=== PATIENT | female | born 1965 | race Caucasian/White ===

== ENCOUNTER 2016-07-21 14:10 | Emergency (ER) | payer OTHER ==
[2016-07-21 14:38] VITALS: BP 151/96
[2016-07-21] MEDS ORDERED: ONDANSETRON HCL/PF 2 MG/ML VIAL IM ONE (15:42)
[2016-07-21] MEDS ORDERED: KETOROLAC TROMETHAMINE 60 MG/2 ML VIAL IM ONE ×2 (15:42→15:50)
[2016-07-21] MEDS ORDERED: ACETAMINOPHEN PO PRN ×2 (15:43)
[2016-07-21] MEDS ORDERED: OXYCODONE PO PRN (15:43)
[2016-07-21] MEDS ORDERED: HYDROCODONE PO PRN (15:43)
--- NOTE | 2016-07-21 15:44 | ERNOTE ---
Back Pain ER HPI Date of Service: 07/21/16 Presenting Symptoms: hx chronic back pain Time Seen by Provider: 07/21/16 15:39 Immunizations: IMMUNIZATION HX Immunizations Up to Date Yes History of Influenza Vaccine No Hx Pneumococcal Vaccination No Allergies/Adverse Reactions: Allergies sumatriptan [From Imitrex] Adverse Reaction (Mild, Verified 07/21/16 14:38) "made me feel high" sumatriptan succinate [From Imitrex] Adverse Reaction (Mild, Verified 07/21/16 14:38) "made me feel high" Home Medications: HOME MEDICATIONS Amlodipine Besylate 10 mg PO DAILY 09/01/13 [Last Taken Unknown] Levothyroxine Sodium [Synthroid] 200 mcg PO DAILY 09/01/13 [Last Taken Unknown] ALPRAZolam [Xanax] 2 mg PO QID 11/08/13 [Last Taken 07/05/14] Aripiprazole [Abilify] 30 mg PO DAILY 11/08/13 [Last Taken 07/05/14] Escitalopram Oxalate [Lexapro] 15 mg PO DAILY 06/14/14 [Last Taken Unknown] Zolpidem Tartrate 10 mg PO HS 06/14/14 [Last Taken Unknown] Levofloxacin [Levaquin] 750 mg PO DAILY #10 tab 10/12/14 [Last Taken Unknown] Amox Tr/Potassium Clavulanate [Augmentin 875-125 Tablet] 875 mg PO Q12H #20 tab 04/03/16 [Last Taken Unknown] Hydrocodone/Acetaminophen [Dixon 7.5-325 Tablet] 1 each PO QID PRN #12 tablet [Last Taken Unknown] Ibuprofen [Motrin] 800 mg PO TID #30 tablet 04/03/16 [Last Taken Unknown] Lisinopril [Zestril] 04/04/16 [Last Taken Unknown] Mupirocin [Bactroban] 1 appl TP BID #22 gm 05/19/16 [Last Taken Unknown] oxyCODONE HCL/ACETAMINOPHEN [Percocet 5 MG/325 MG] 1 tab PO Q4H PRN #20 tab [Last Taken Unknown] Sulfamethoxazole/Trimethoprim [Bactrim Ds] 1 tab PO BID #20 tab 07/21/16 [Last Taken Unknown] Narrative: Here for chronic back pain. Also complains of right sided occipital headaches, which have been there for three days. Also pt has a small area of redness under her right breast.She states she has had MRSA before. - Patient's Past Medical History Patient History - Medical: Anxiety, Bipolar, Chronic Pain, Diabetes Type 2, Depression, Migraines Patient History - Cardiac/Respiratory: Hypertension, Hyperlipidemia Patient History - Cancer: No Hx of Cancer, Thyroid Patient History - Surgical Procedures: Appendectomy, Back Surgery, Hysterectomy , Tubal Ligation, T & A, Other Patient History - Other: None - Social History Living Situations: home Abuse History: No History of abuse Psych History: No pertinent hx Does anyone smoke in the home?: Yes Alcohol Use: occasionally Drug Use: none - Immunizations Immunizations Up to Date: Yes Hx Pneumococcal Vaccination: No History of Influenza Vaccine: No ED Progress - Vital Signs Vital Signs: Vital Signs 07/21/16 14:29 Temperature 36.2 C L Pulse Rate 84 Respiratory 12 Rate Blood Pressure 151/96 O2 Sat by Pulse 96 Oximetry - Progress/Reassessment Chief Complaint: Back Pain Departure Clinical Impression: Cellulitis of breast Chronic pain Qualifiers: Chronic pain type: other chronic pain Qualified Code(s): G89.29 - Other chronic pain - Departure Disposition: Home self-care Condition: Good Instructions: Cellulitis, Adult, [id number], Chronic Back Pain Referrals: Herlinda Walden MD [Primary Care Provider] - Prescriptions: Sulfamethoxazole/Trimethoprim [Bactrim Ds] 1 tab PO BID #20 tab
[2016-07-21] MEDS ORDERED: POTASSIUM CLAVULANATE PO SCH (15:45)
[2016-07-21] MEDS ORDERED: [UNRECOGNIZED DRUG - OTHER] PO SCH (15:45)
[2016-07-21] MEDS ORDERED: AMOX TR PO SCH (15:45)
[2016-07-21] MEDS ORDERED: diphenhydrAMINE HCL 25 MG CAPSULE PO ONE (15:47)
[2016-07-21] MEDS ORDERED: diphenhydrAMINE HCL 25 MG CAPSULE ONE (15:50)
[2016-07-21] MEDS ORDERED: ONDANSETRON HCL/PF 2 MG/ML VIAL ONE (15:50)
[2016-07-21] MEDS ORDERED: ALPRAZOLAM 2 MG PO SCH (17:00)
[2016-07-21] MEDS ORDERED: IBUPROFEN 800 MG PO SCH (17:00)
[2016-07-21] MEDS ORDERED: ZOLPIDEM TARTRATE 10 MG PO SCH (21:00)
[2016-07-21] MEDS ORDERED: MUPIROCIN TP SCH (21:00)
[2016-07-22] MEDS ORDERED: LEVOFLOXACIN 750 MG PO SCH (09:00)
[2016-07-22] MEDS ORDERED: ESCITALOPRAM OXALATE 15 MG PO SCH (09:00)
[2016-07-22] MEDS ORDERED: AMLODIPINE BESYLATE 10 MG PO SCH (09:00)
[2016-07-22] MEDS ORDERED: LEVOTHYROXINE SODIUM 200 MCG PO SCH (09:00)
[2016-07-22] MEDS ORDERED: ARIPIPRAZOLE 30 MG PO SCH (09:00)
== END 2016-07-21 16:02 | disposition home or self-care (01) ==
LOC: ER 14:10
DX: G89.29 Other chronic pain (principal); N61.0 Mastitis without abscess

== ENCOUNTER 2016-11-16 05:28 | Emergency (ER) | payer OTHER ==
--- NOTE | 2016-11-16 06:12 | ERNOTE ---
Trauma/Assault HPI - General Stated Complaint: FALL Time Seen by Provider: 11/16/16 05:55 Source: patient Exam Limitations: no limitations - Immun/Allergies/Home Medications Immunizations: IMMUNIZATION HX Immunizations Up to Date Yes History of Influenza Vaccine No Hx Pneumococcal Vaccination No Allergies/Adverse Reactions: Allergies sumatriptan [From Imitrex] Adverse Reaction (Mild, Verified 11/16/16 11:08) "made me feel high" sumatriptan succinate [From Imitrex] Adverse Reaction (Mild, Verified 11/16/16 11:08) "made me feel high" Home Medications: HOME MEDICATIONS Amlodipine Besylate 10 mg PO BID 09/01/13 [Last Taken Unknown] Levothyroxine Sodium [Synthroid] 300 mcg PO DAILY 09/01/13 [Last Taken Unknown] ALPRAZolam [Xanax] 2 mg PO QID 11/08/13 [Last Taken 07/05/14] Aripiprazole [Abilify] 30 mg PO DAILY 11/08/13 [Last Taken 07/05/14] Escitalopram Oxalate [Lexapro] 30 mg PO DAILY 06/14/14 [Last Taken Unknown] Lisinopril [Zestril] 10 mg PO BID 04/04/16 [Last Taken Unknown] QUEtiapine FUMARATE [Seroquel] 50 mg PO HS 11/16/16 [Last Taken Unknown] - History of Present Illness Narrative: Pt got up to go to the bathroom and tripped over the cat bowl. She struck her head on the oven door and scraped her left knee. this caused her to have a migraine Location Occurred: Reports: home Pain Location: Reports: head, lower extremity - left knee Method of Injury: Reports: fall Severity: moderate Modifying Factors - (Worsens): Reports: movement Loss of Consciousness: Reports: brief (seconds) - unsure, remembers the event, remembers coming to hospital Associated Symptoms - Trauma: Reports: headache. Denies: confusion Review of Systems - Review of Systems Constitutional: Present: no symptoms reported EYE: Present: no symptoms reported ENT: Present: no symptoms reported - Patient's Past Medical History Patient History - Medical: Anxiety, Bipolar, Chronic Pain, Diabetes Type 2, Depression, Migraines Patient History - Cardiac/Respiratory: Hypertension, Hyperlipidemia Patient History - Cancer: Thyroid Patient History - Surgical Procedures: Appendectomy, Back Surgery, Hysterectomy , Tubal Ligation, T & A, Other Patient History - Other: None - Social History Living Situations: home Abuse History: No History of abuse Psych History: Hx of Anxiety, Hx of Depression, Hx of Bipolar Disorder, Current tx/ever been on anti-depressants or anti-anxiety meds Does anyone smoke in the home?: Yes Smoking Status: Current every day smoker Alcohol Use: occasionally Drug Use: none - Immunizations Immunizations Up to Date: Yes Hx Pneumococcal Vaccination: No History of Influenza Vaccine: No Physical Exam - Physical Exam General Appearance: Present: wd/wn, alert, mild distress Eye Exam: Normal inspection: bilateral, PERRL: bilateral, EOMI: bilateral Neck: Present: normal inspection, nontender, supple, full range of motion Respiratory: Present: no respiratory distress, no accessory muscle use Back Exam: Present: normal inspection, normal range of motion Extremity Exam: Present: normal range of motion, no edema Neurological Exam: Present: alert, oriented, normal mood/affect, courtroom deputy II-XII nml as tested Skin Exam: Present: other - abrasion on top of head, 3 cm in diameter minimal raised bruise present ED Progress - Vital Signs Vital Signs: Vital Signs 11/16/16 05:31 Temperature 36.4 C L Pulse Rate 96 Respiratory 18 Rate Blood Pressure 160/114 O2 Sat by Pulse 95 Oximetry - Progress/Reassessment Chief Complaint: Fall Progress Note-Subjective: 11/16/16 07:12 Pt comes out of her room asking if her tests are done. I checked the CT scan and no results are available. Labs are returned and are WNL. Pt back in her room and nurse went in to explain the delay to her. Pt yelling at the nurse that she has waited too long. Nurse explaining that we had 2 people brought in by ambulance and others come in as well that required our attention while awaiting her results. 11/16/16 07:20 CT results returned. Pt talking about leaving AMA. I followed the patient back into her room and explained that I needed to wait for the results for her safety. She stated that "I am not on warfarin, what did you think, that I had a bleed in my brain?" I explained that many people have bleeds in their brain that are not on blood thinners and that her safety had to come first. pt did calm down when I explained that I have ordered medications. Ketorolac and phenergan given IM. Departure Clinical Impression: Headache Qualifiers: Headache type: unspecified Headache chronicity pattern: acute headache Intractability: not intractable Qualified Code(s): R51 - Headache Contusion Qualifiers: Encounter type: initial encounter Contusion area: head Contusion of head detail : scalp Qualified Code(s): S00.03XA - Contusion of scalp, initial encounter - Departure Disposition: Home Follow Up Needed Condition: Good Instructions: General Headache Without Cause Additional Instructions: See your regular doctor if not improving. Return to ER if worsening Referrals: Hrelinda Walden MD [Primary Care Provider] -
--- OUTSIDE RECORDS SUMMARY | 2016-11-16 06:12 | XMS REPORT | Continuity of Care Document ---
:1965 Author Organization [email or web address] [place] [address] Care Team Providers Name Role Phone Unavailable Primary Care Provider Unavailable Source Comments This disclosure is being made pursuant to the [employer] program and maynot contain all information available regarding this patient.[email or web address] Active Allergies and Adverse Reactions Not on File Current Medications Be aware that medications may not be up to date as of this document. Alwaysverify current medications with the patient. Not on file Active Problems Not on file Social History Tobacco Use Types Packs/Day Years Used Date Never Assessed Plan of Care Health Maintenance Due Date Last Done Comments Retired-Pertussis Vaccine Adult 1985 Retired-Tetanus Vaccine Adult 1985 Pap Smear 1987 Mammogram 2006 Retired-INFLUENZA VACCINE 02/18/2015 Results from Last 3 Months Not on file
--- OUTSIDE RECORDS SUMMARY | 2016-11-16 06:12 | XMS REPORT | Continuity of Care Document ---
:1965 Author Organization [facility] ([facility]) [place] [address] Phone [phone] Care Team Providers Name Role Phone Arnie Joshi Primary Care Provider [phone] Source Comments This disclosure is being made pursuant to the Care Everywhere program, applicable federal and state laws, and may not contain all informaitonavailable regarding this patient.[facility] ([facility]) Active Allergies and Adverse Reactions No Active Allergies Current Medications Not on file Active Problems Problem Noted Date Viral hepatitis B without mention of hepatic coma, acute or unspecified, 07/06 without mention of hepatitis delta Chronic hepatitis C without mention of hepatic coma 07/06/2006 Social History Tobacco Use Types Packs/Day Years Used Date Never Assessed Last Filed Vital Signs Vital Sign Reading Time Taken Blood Pressure 141/80 08/16/2006 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 Pulse 79 08/16/2006 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 Temperature 36.9 C (98.42 F) 08/16/2006 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 Respiratory Rate - - Height 1.7 m (5' 6.92") 08/16/2006 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 Weight 103.896 kg (229 lb 0.8 oz) 08/16/2006 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 Body Mass Index 35.95 08/16/2006 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 Oxygen Saturation - - Plan of Care Health Maintenance Due Date Last Done Comments Tdap Vaccine 1977 Lipid Disorder Screening 1984 MMR Vaccine 1984 Td Vaccine 1984 Pneumococcal Vaccine (1 of 1 1985 - PPSV23) Cervical Cancer Screening 1996 Mammogram 2006 Hepatitis B Vaccine (3 of 3 01/13/2007 08/16/2006, Additional history exists - Twinrix Series) 08/16/2006, 07/06/2006 Influenza Vaccine: Seasonal 01/19/2016 (#1) Results from Last 3 Months Not on file
[2016-11-16 06:25] LABS: Hematocrit 40.6 % (37.0-47.0); Hemoglobin 13.8 gm/dL (12.5-16.0); Mean Cell Volume 93.1 fl (78-100); Mean Corpuscular Hemoglobin 31.7 pg (27-31); Mean Platelet Volume 9.3 fl (6.0-9.5); Neutrophil # 2.8 K/mm3 (1.3-6.0); Neutrophil % 51.5 % (42-75.0); Platelet Count 186 K/mm3 (150-450); Red Blood Count 4.36 M/mm3 (4.2-5.4); Red Cell Distribution Width 12.9 % (11.5-14.0); White Blood Count 5.4 K/mm3 (4.0-10.5)
[2016-11-16 06:32] LABS: Anion Gap 12.2 mmol/L (6.8-13.8); BUN/Creatinine Ratio 12.8 (9.0-21.6); Calcium * 8.3 mg/dL (7.9-10.9); Carbon Dioxide 25.3 mmol/L (24-32.6); Estimated Creat Clear 69.6; Potassium 3.5 mmol/L (3.4-4.6)
[2016-11-16 07:12] VITALS: BP 122/54
[2016-11-16] MEDS ORDERED: KETOROLAC TROMETHAMINE 60 MG/2 ML VIAL IM ONE ×2 (07:17→07:22)
[2016-11-16] MEDS ORDERED: PROMETHAZINE HCL 25 MG/ML AMPUL IM ONE (07:18)
[2016-11-16] MEDS ORDERED: PROMETHAZINE HCL 25 MG/ML AMPUL ONE (07:22)
== END 2016-11-16 07:37 | disposition home or self-care (01) ==
LOC: ER 05:28
DX: R51 Headache (principal); S00.03XA Contusion of scalp, initial encounter; W01.198A Fall on same level from slipping, tripping and stumbling with subsequent striking against other object, initial encounter; Y93.9 Activity, unspecified; Y92.000 Kitchen of unspecified non-institutional (private) residence as the place of occurrence of the external cause; Z72.0 Tobacco use; Z85.850 Personal history of malignant neoplasm of thyroid; F31.70 Bipolar disorder, currently in remission, most recent episode unspecified; F41.8 Other specified anxiety disorders; I10 Essential (primary) hypertension

== ENCOUNTER 2016-11-16 11:01 | Emergency (ER) | payer OTHER ==
[2016-11-16 11:08] VITALS: BP 167/93
--- OUTSIDE RECORDS SUMMARY | 2016-11-16 11:45 | XMS REPORT | Continuity of Care Document ---
:1965 Author Organization [facility] [place] [address] Care Team Providers Name Role Phone Unavailable Primary Care Provider Unavailable Source Comments This disclosure is being made pursuant to the [employer] program and maynot contain all information available regarding this patient.[employer] Active Allergies and Adverse Reactions Not on [...]
--- OUTSIDE RECORDS SUMMARY | 2016-11-16 11:46 | XMS REPORT | Continuity of Care Document ---
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
[2016-11-16] MEDS ORDERED: METOCLOPRAMIDE HCL 5 MG/ML VIAL IM ONE (11:50)
[2016-11-16] MEDS ORDERED: diphenhydrAMINE HCL 50 MG/ML VIAL IM ONE (11:50)
[2016-11-16] MEDS ORDERED: METOCLOPRAMIDE HCL 5 MG/ML VIAL ONE (12:04)
[2016-11-16] MEDS ORDERED: diphenhydrAMINE HCL 50 MG/ML VIAL ONE (12:04)
--- NOTE | 2016-11-16 12:06 | ERNOTE ---
Headache ER HPI - Narrative Date of Service: 11/16/16 - General Presenting Symptoms: headache Time Seen by Provider: 11/16/16 11:33 Source: patient, RN notes reviewed, old records - Immun/Allergies/Home Medications Immunizations: IMMUNIZATION HX Immunizations Up to Date Yes History of Influenza Vaccine No Hx Pneumococcal Vaccination No Allergies/Adverse Reactions: Allergies sumatriptan [From Imitrex] Adverse Reaction (Mild, Verified 11/16/16 11:08) "made me feel high" sumatriptan succinate [From Imitrex] Adverse Reaction (Mild, Verified 11/16/16 11:08) "made me feel high" Home Medications: HOME MEDICATIONS Amlodipine Besylate 10 mg PO BID 09/01/13 [Last Taken Unknown] Levothyroxine Sodium [Synthroid] 300 mcg PO DAILY 09/01/13 [Last Taken Unknown] ALPRAZolam [Xanax] 2 mg PO QID 11/08/13 [Last Taken 07/05/14] Aripiprazole [Abilify] 30 mg PO DAILY 11/08/13 [Last Taken 07/05/14] Escitalopram Oxalate [Lexapro] 30 mg PO DAILY 06/14/14 [Last Taken Unknown] Lisinopril [Zestril] 10 mg PO BID 04/04/16 [Last Taken Unknown] QUEtiapine FUMARATE [Seroquel] 50 mg PO HS 11/16/16 [Last Taken Unknown] - Pain Pain Score: 9 - History of Present Illness Narrative: 51 y/o female returns ambulatory to the ED for a headache due to a fall at home that she was evaluated here 4 hours ago for. She had a normal head CT and unremarkable lab work. She was given Toradol and Phenergan IM, but reports her headache is now worse. She contacted her PCP and was directed to come back here. She is upset that her pain was not treated adequately at her first visit today, and reports feeling that she was not thoroughly evaluated, despite complaining earlier this morning about having a CT and labs done. She took Excedrin Migraine at home. This did not help her pain either. Date (Duration): 11/16/16 Time (Timing): 05:00 Timing of Headache: abrupt Context Headache: Present: new onset Associated Symptoms: Denies: nausea, vomiting, vision changes, confusion, loss of consciousness, neck pain/stiffness Prior Treament: Reports: recently seen, treated by physician Review of Systems - Review of Systems Constitutional: Present: no symptoms reported EYE: Present: see HPI ENT: Present: no symptoms reported Respiratory: Present: no symptoms reported Cardiology: Present: no symptoms reported Gastrointestinal/Abdominal: Present: See HPI Genitourinary: Present: no symptoms reported Musculoskeletal: Present: joint pain, joint swelling. Absent: neck pain Skin: Present: lumps. Absent: lesions Neurological: Present: See HPI Endocrine: Present: no symptoms reported Hematologic/Lymphatic: Present: no symptoms reported Psych: Present: emotional problems - Patient's Past Medical History Patient History - Medical: Anxiety, Bipolar, Chronic Pain, Diabetes Type 2, Depression, Migraines Patient History - Cardiac/Respiratory: Hypertension, Hyperlipidemia Patient History - Cancer: Thyroid Patient History - Surgical Procedures: Appendectomy, Back Surgery, Hysterectomy , Tubal Ligation, T & A, Other Patient History - Other: None LMP (females 10-50): Menopausal - Social History Living Situations: home Abuse History: No History of abuse Psych History: Hx of Anxiety, Hx of Depression, Hx of Bipolar Disorder, Current tx/ever been on anti-depressants or anti-anxiety meds Does anyone smoke in the home?: Yes Smoking Status: Current every day smoker Alcohol Use: occasionally Drug Use: none - Immunizations Immunizations Up to Date: Yes Hx Pneumococcal Vaccination: No History of Influenza Vaccine: No Physical Exam - Physical Exam General Appearance: Present: wd/wn, alert, no apparent distress, other - Disheveled appearance, angry/argumentative Respiratory: Present: no respiratory distress, normal breath sounds, no accessory muscle use, lungs clear Cardiovascular/Chest: Present: regular rate, rhythm, no murmur, normal peripheral pulses Extremity Exam: Present: normal range of motion, no edema, other - mild contusion and tenderness to left anterior knee, no deformity or effusion present. Absent: joint swelling, extremity edema Neurological Exam: Present: alert, oriented, no motor/sensory deficits, other - dysporic. Absent: normal mood/affect Skin Exam: Present: normal color, warm/dry ED Progress - Vital Signs Patient's Vital Signs:: I have reviewed the patient's vital signs. Vital Signs: Vital Signs 11/16/16 11/16/16 11/16/16 05:31 07:09 11:04 Temperature 36.4 C L 36.4 C L Pulse Rate 95 Respiratory 16 Rate Blood Pressure 122/54 167/93 O2 Sat by Pulse 97 Oximetry - Progress/Reassessment Chief Complaint: Headache Progress:: Unchanged Plan - Plan Plan: Patient is angry and verbally abusive with nursing staff, argumentative with me about pain medications, repeatedly told that I will not give her narcotics as this is not appropriate in light of her hitting her head, her frequent falls and her current medications. Offered Reglan and Benadryl as it is not time for her to have another dose of Toradol - finally agrees to taking this after arguing for some time. Departure Clinical Impression: Headache Qualifiers: Headache type: unspecified Headache chronicity pattern: acute headache Intractability: not intractable Qualified Code(s): R51 - Headache Fall Qualifiers: Encounter type: subsequent encounter Qualified Code(s): W19.XXXD - Unspecified fall, subsequent encounter Contusion of knee, left Qualifiers: Encounter type: subsequent encounter Qualified Code(s): S80.02XD - Contusion of left knee, subsequent encounter - Departure Disposition: Home Follow Up Needed Condition: Stable Additional Instructions: Continue your routine medications Apply ice to sore areas Referrals: Herlinda Walden MD [Staff Physician] -
== END 2016-11-16 12:18 | disposition home or self-care (01) ==
LOC: ER 11:01
DX: R51 Headache (principal); W19.XXXD Unspecified fall, subsequent encounter; S80.02XD Contusion of left knee, subsequent encounter; Z85.850 Personal history of malignant neoplasm of thyroid; Z72.0 Tobacco use; F31.70 Bipolar disorder, currently in remission, most recent episode unspecified; I10 Essential (primary) hypertension; F41.8 Other specified anxiety disorders

== ENCOUNTER 2017-03-17 14:16 | Emergency (ER) | payer OTHER ==
[2017-03-17 14:29] VITALS: BP 126/95
[2017-03-17] MEDS ORDERED: KETOROLAC TROMETHAMINE 60 MG/2 ML VIAL IM ONE ×2 (14:32→14:34)
[2017-03-17] MEDS ORDERED: CLINDAMYCIN PHOSPHATE 150 MG/ML VIAL IM ONE (14:32)
[2017-03-17] MEDS ORDERED: ORPHENADRINE CITRATE 30 MG/ML VIAL IM ONE (14:32)
[2017-03-17] MEDS ORDERED: ORPHENADRINE CITRATE 30 MG/ML VIAL ONE (14:34)
--- NOTE | 2017-03-17 14:38 | ERNOTE ---
Back Pain ER HPI Date of Service: 03/17/17 Presenting Symptoms: hx chronic back pain, other - R axillary boils Time Seen by Provider: 03/17/17 14:18 Source: patient Exam Limitations: no limitations Immunizations: IMMUNIZATION HX Immunizations Up to Date Yes History of Influenza Vaccine No Hx Pneumococcal Vaccination No Allergies/Adverse Reactions: Allergies sumatriptan [From Imitrex] Adverse Reaction (Mild, Verified 03/17/17 14:26) "made me feel high" sumatriptan succinate [From Imitrex] Adverse Reaction (Mild, Verified 03/17/17 14:26) "made me feel high" Home Medications: HOME MEDICATIONS Amlodipine Besylate 10 mg PO BID 09/01/13 [Last Taken Unknown] Levothyroxine Sodium [Synthroid] 300 mcg PO DAILY 09/01/13 [Last Taken Unknown] ALPRAZolam [Xanax] 2 mg PO QID 11/08/13 [Last Taken 07/05/14] Aripiprazole [Abilify] 30 mg PO DAILY 11/08/13 [Last Taken 07/05/14] Escitalopram Oxalate [Lexapro] 30 mg PO DAILY 06/14/14 [Last Taken Unknown] Lisinopril [Zestril] 10 mg PO BID 04/04/16 [Last Taken Unknown] QUEtiapine FUMARATE [Seroquel] 300 mg PO HS 11/16/16 [Last Taken Unknown] Baclofen 20 mg PO BID #60 tablet 03/17/17 [Last Taken Unknown] Orphenadrine Citrate [Norflex] 100 mg PO Q12H #20 tablet.sa 03/17/17 [Last Taken Unknown] Sulfamethoxazole/Trimethoprim [Bactrim Ds] 1 tab PO BID #28 tab 03/17/17 [Last Taken Unknown] Narrative: Pt. comes in with c/o low back pain for 12 hours and abscesses in her R axilla for three days. Pt. 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 Pt. denies any fever, SOB, CP, NVD, fever, but states that she slept in a bad position last night that made her chronic low back pain flair. Pt. states that she usually takes oxycodone for her back pain but has not had a flare in a long time and does not have any percocet at home at this time. Pt. states that her back pain is radiating down her R leg and into her R buttock. Pt. denies that this is a change for her. Review of Systems - Review of Systems Constitutional: Present: no symptoms reported. Absent: recent illness, fever, chills, weakness, fatigue, malaise EYE: Present: no symptoms reported ENT: Present: no symptoms reported Respiratory: Present: no symptoms reported. Absent: shortness of breath, cough , wheezing Cardiology: Present: no symptoms reported. Absent: chest pain, palpitations, edema Gastrointestinal/Abdominal: Present: no symptoms reported. Absent: nausea, vomiting, diarrhea Genitourinary: Present: no symptoms reported. Absent: frequency, pain, dysuria , decreased urinary output Musculoskeletal: Present: back pain - lumbarsacral. Absent: muscle pain, muscle stiffness, joint pain Skin: Present: lesions - R axillary abscesses. Absent: rash, change in hair/ nails Neurological: Present: no symptoms reported. Absent: headache, dizziness/light- headedness, numbness, tingling All Other Systems: All systems neg except as marked - Patient's Past Medical History Patient History - Medical: Anxiety, Bipolar, Chronic Pain, Diabetes Type 2, Depression, Migraines Patient History - Cardiac/Respiratory: Hypertension, Hyperlipidemia Patient History - Cancer: Thyroid Patient History - Surgical Procedures: Appendectomy, Back Surgery, Cancer Surgery, Hysterectomy, Tubal Ligation, T & A, Other Patient History - Other: None LMP (females 10-50): other - Social History Living Situations: home Abuse History: No History of abuse Psych History: Hx of Anxiety, Hx of Depression, Hx of Bipolar Disorder, Current tx/ever been on anti-depressants or anti-anxiety meds Does anyone smoke in the home?: Yes Smoking Status: Current every day smoker Alcohol Use: occasionally Drug Use: none - Immunizations Immunizations Up to Date: Yes Hx Pneumococcal Vaccination: No History of Influenza Vaccine: No Physical Exam - Physical Exam General Appearance: Present: wd/wn, alert, no apparent distress Head Exam: Present: normal inspection, no evidence of injury Eye Exam: Normal inspection: bilateral, PERRL: bilateral, EOMI: bilateral Ears, Nose, Throat: Present: normal ENT inspection, normal pharynx Neck: Present: normal inspection, nontender. Absent: lymphadenopathy (R), lymphadenopathy (L) Respiratory: Present: no respiratory distress, normal breath sounds, no accessory muscle use, chest nontender, lungs clear Cardiovascular/Chest: Present: regular rate, rhythm, no murmur, normal peripheral pulses Gastrointestinal/Abdominal: Present: normal bowel sounds, nontender, nondistended, soft, no organomegaly Back Exam: Present: normal range of motion, no CVA tenderness, vertebral tenderness - L5/ S1, muscle spasm - R paraspinous Extremity Exam: Present: normal inspection, non-tender, normal range of motion, no edema Neurological Exam: Present: alert, oriented, normal mood/affect, no motor/ sensory deficits Skin Exam: Present: normal color, warm/dry, other - two abscesses firm 1cm R axilla one partially open clear fluid drainage scant. Pt. has been squeezing. ED Progress - Vital Signs Patient's Vital Signs:: I have reviewed the patient's vital signs. Vital Signs: Vital Signs 03/17/17 03/17/17 14:21 14:29 Temperature 36.6 C Pulse Rate 81 Respiratory 16 Rate Blood Pressure 126/95 O2 Sat by Pulse 99 Oximetry - Progress/Reassessment Chief Complaint: Back Pain Progress:: Improved Departure Clinical Impression: DJD (degenerative joint disease) of lumbar spine, Abscess - Departure Disposition: Home self-care Condition: Good Instructions: Abscess, [id number], Chronic Back Pain Additional Instructions: Please follow up with primary provider in 2-3 days. Referrals: Herlinda Walden MD [Primary Care Provider] - Prescriptions: Baclofen 20 mg PO BID #60 tablet Orphenadrine Citrate [Norflex] 100 mg PO Q12H #20 tablet.sa Sulfamethoxazole/Trimethoprim [Bactrim Ds] 1 tab PO BID #28 tab
[2017-03-17] MEDS ORDERED: diphenhydrAMINE HCL 50 MG/ML VIAL IM ONE (15:00)
[2017-03-17] MEDS ORDERED: METOCLOPRAMIDE HCL 5 MG/ML VIAL IM ONE (15:01)
[2017-03-17] MEDS ORDERED: METOCLOPRAMIDE HCL 5 MG/ML VIAL ONE (15:14)
[2017-03-17] MEDS ORDERED: diphenhydrAMINE HCL 50 MG/ML VIAL ONE (15:14)
== END 2017-03-17 15:22 | disposition home or self-care (01) ==
LOC: ER 14:16
DX: M47.9 Spondylosis, unspecified (principal); L02.411 Cutaneous abscess of right axilla

== ENCOUNTER 2017-04-06 06:43 | Emergency (ER) | payer OTHER ==
[2017-04-06 06:49] VITALS: BP 174/111
[2017-04-06] MEDS ORDERED: ORPHENADRINE CITRATE 30 MG/ML VIAL IV ONE (07:17)
[2017-04-06] MEDS ORDERED: NORMAL SALINE 1,000 ML IV ONE (07:17)
[2017-04-06] MEDS ORDERED: diphenhydrAMINE HCL 50 MG/ML VIAL IV ONE (07:17)
[2017-04-06] MEDS ORDERED: KETOROLAC TROMETHAMINE 30 MG/ML VIAL IV ONE (07:17)
[2017-04-06] MEDS ORDERED: ONDANSETRON HCL/PF 2 MG/ML VIAL IV ONE (07:17)
--- NOTE | 2017-04-06 07:20 | ERNOTE ---
Headache ER HPI - General Presenting Symptoms: headache Time Seen by Provider: 04/06/17 07:05 Source: patient Exam Limitations: clinical condition - Immun/Allergies/Home Medications Immunizations: IMMUNIZATION HX Immunizations Up to Date Yes History of Influenza Vaccine No Hx Pneumococcal Vaccination No Allergies/Adverse Reactions: Allergies sumatriptan [From Imitrex] Adverse Reaction (Mild, Verified 04/06/17 06:49) "made me feel high" sumatriptan succinate [From Imitrex] Adverse Reaction (Mild, Verified 04/06/17 06:49) "made me feel high" Home Medications: HOME MEDICATIONS Amlodipine Besylate 10 mg PO BID 09/01/13 [Last Taken Unknown] Levothyroxine Sodium [Synthroid] 300 mcg PO DAILY 09/01/13 [Last Taken Unknown] ALPRAZolam [Xanax] 2 mg PO QID 11/08/13 [Last Taken 07/05/14] Aripiprazole [Abilify] 30 mg PO DAILY 11/08/13 [Last Taken 07/05/14] Escitalopram Oxalate [Lexapro] 30 mg PO DAILY 06/14/14 [Last Taken Unknown] Lisinopril [Zestril] 10 mg PO BID 04/04/16 [Last Taken Unknown] QUEtiapine FUMARATE [Seroquel] 300 mg PO HS 11/16/16 [Last Taken Unknown] Baclofen 20 mg PO BID #60 tablet 03/17/17 [Last Taken Unknown] Orphenadrine Citrate [Norflex] 100 mg PO Q12H #20 tablet.sa 03/17/17 [Last Taken Unknown] Sulfamethoxazole/Trimethoprim [Bactrim Ds] 1 tab PO BID #28 tab 03/17/17 [Last Taken Unknown] Promethazine HCl [Phenergan] 25 mg PO QID PRN #10 tab 04/06/17 [Last Taken Unknown] - Pain Pain Score: 9 - History of Present Illness Narrative: Pt states she has had a headache since 03:00 this AM. It is like her usual headaches but more severe than most. Timing of Headache: gradual, still present Quality: Present: throbbing Severity Maximum: Present: severe Severity-Currently: Present: severe Headache frequency: Present: frequent headaches, similar to previous headache Modifying Factors - (Improves): Reports: other - Nothing Modifying Factors - (Worsens): Reports: exposure to light Associated Symptoms: Reports: denies symptoms Review of Systems - Review of Systems Constitutional: Absent: recent illness EYE: Present: other - "bloodshot lately" . Absent: vision changes ENT: Absent: nose congestion, nasal drainage Respiratory: Absent: shortness of breath Cardiology: Absent: chest pain Gastrointestinal/Abdominal: Present: nausea. Absent: vomiting, abdominal pain Genitourinary: Present: no symptoms reported Musculoskeletal: Absent: back pain, neck pain Skin: Present: no symptoms reported Neurological: Present: anxiety. Absent: numbness, tingling Endocrine: Present: no symptoms reported Hematologic/Lymphatic: Present: no symptoms reported Psych: Present: no symptoms reported - Patient's Past Medical History Patient History - Medical: Anxiety, Bipolar, Chronic Pain, Diabetes Type 2, Depression, Migraines Patient History - Cardiac/Respiratory: Hypertension, Hyperlipidemia Patient History - Cancer: Thyroid Patient History - Surgical Procedures: Appendectomy, Back Surgery, Cancer Surgery, Hysterectomy, Tubal Ligation, T & A, Other Patient History - Other: None - Social History Abuse History: No History of abuse Psych History: Hx of Anxiety, Hx of Depression, Hx of Bipolar Disorder, Current tx/ever been on anti-depressants or anti-anxiety meds Smoking Status: Current every day smoker Have you smoked in the past 12 months: Yes - Immunizations Immunizations Up to Date: Yes Hx Pneumococcal Vaccination: No History of Influenza Vaccine: No Physical Exam - Physical Exam General Appearance: Present: wd/wn, alert, mild distress, anxious Head Exam: Present: normal inspection, no evidence of injury, no tenderness w palpation Eye Exam: Normal inspection: bilateral, PERRL: bilateral, EOMI: bilateral Ears, Nose, Throat: Present: normal ENT inspection Neck: Present: normal inspection, nontender, supple, full range of motion Respiratory: Present: no respiratory distress, no accessory muscle use Back Exam: Present: normal inspection, normal range of motion Extremity Exam: Present: normal inspection, non-tender Neurological Exam: Present: alert, oriented, no motor/sensory deficits, fruit packer II- XII nml as tested Skin Exam: Present: normal color, warm/dry Lymphatic Exam: Present: no adenopathy ED Progress - Vital Signs Vital Signs: Vital Signs 04/06/17 06:46 Temperature 36.9 C Pulse Rate 98 Respiratory 14 Rate Blood Pressure 174/111 O2 Sat by Pulse 98 Oximetry - Progress/Reassessment Chief Complaint: Headache Progress:: Improved Progress Note-Subjective: 04/06/17 08:00 much better, only pain left is on top of her head. 04/06/17 08:00 Still some nausea. Departure Clinical Impression: Headache Qualifiers: Headache type: unspecified Headache chronicity pattern: acute headache Intractability: not intractable Qualified Code(s): R51 - Headache - Departure Disposition: Home self-care Condition: Good Instructions: Migraine Headache, [id number] Additional Instructions: rest today, get plenty of fluids. Referrals: Herlinda Walden MD [Primary Care Provider] - Prescriptions: Promethazine HCl [Phenergan] 25 mg PO QID PRN #10 tab PRN Reason: nausea/vomiting
[2017-04-06] MEDS ORDERED: ONDANSETRON HCL/PF 2 MG/ML VIAL ONE (07:24)
[2017-04-06] MEDS ORDERED: diphenhydrAMINE HCL 50 MG/ML VIAL ONE (07:24)
[2017-04-06] MEDS ORDERED: ORPHENADRINE CITRATE 30 MG/ML VIAL ONE (07:24)
[2017-04-06] MEDS ORDERED: KETOROLAC TROMETHAMINE 30 MG/ML VIAL ONE (07:24)
[2017-04-06] MEDS ORDERED: PROMETHAZINE HCL 25 MG/ML AMPUL IM ONE (08:01)
[2017-04-06] MEDS ORDERED: PROMETHAZINE HCL 25 MG/ML AMPUL ONE (08:11)
== END 2017-04-06 08:25 | disposition home or self-care (01) ==
LOC: ER 06:43
DX: R51 Headache (principal); F17.200 Nicotine dependence, unspecified, uncomplicated; Z85.850 Personal history of malignant neoplasm of thyroid
CPT/HCPCS: 96372; 96374; 96375; 99284; J2405

== ENCOUNTER 2018-08-21 08:56 | Observation (INO) ==
[2018-08-21] MEDS ORDERED: NALOXONE HCL 1 MG/1 ML SYRG IV ONE (08:57)
[2018-08-21] MEDS ORDERED: NALOXONE HCL 1 MG/1 ML SYRG ONE (08:58)
[2018-08-21] MEDS ORDERED: NALOXONE HCL 0.4 MG/ML VIAL IV STA (09:03)
--- NOTE | 2018-08-21 09:06 | ERNOTE ---
Neuro HPI ER Record Presenting Symptoms: other - confused Time Seen by Provider: 08/21/18 08:56 Source: EMS Exam Limitations: clinical condition Immunizations: IMMUNIZATION HX Immunizations Up to Date Yes History of Influenza Vaccine No Hx Pneumococcal Vaccination Yes Allergies/Adverse Reactions: Allergies Allergy/AdvReac Type Severity Reaction Status Date / Time gabapentin [From Neurontin] Allergy Mild Makes Verified 07/20/18 14:32 patient feel "high" sumatriptan [From Imitrex] AdvReac Mild "made me Verified 07/20/18 14:32 feel high" sumatriptan succinate AdvReac Mild "made me Verified 07/20/18 14:32 [From Imitrex] feel high" Home Medications: HOME MEDICATIONS albuterol sulfate HFA 90 mcg/actuation aerosol inhaler 1 puff IH QID PRN g 01/12/18 [Last Taken Unknown] amlodipine 5 mg tablet 5 mg PO BID tab 01/12/18 [Last Taken Unknown] lisinopril 30 mg tablet 30 mg PO DAILY 01/12/18 [Last Taken Unknown] omeprazole 20 mg capsule,delayed release 20 mg PO DAILY 01/12/18 [Last Taken Unknown] rosuvastatin 20 mg tablet 20 mg PO DAILY 01/12/18 [Last Taken Unknown] metoprolol tartrate 50 mg tablet 50 mg PO BID #60 tab 03/24/18 [Last Taken Unknown] levothyroxine 200 mcg tablet 200 mcg PO DAILY #30 tab 03/27/18 [Last Taken Unknown] cyclobenzaprine 10 mg tablet 10 mg PO HS #30 tab 03/31/18 [Last Taken Unknown] quetiapine 300 mg tablet 300 mg PO HS #30 tab 05/26/18 [Last Taken Unknown] Silver Sulfadiazine [Silvadene] 1 appl TOPICAL BID #85 gm 06/21/18 [Last Taken Unknown] oxyCODONE HCL/ACETAMINOPHEN [Percocet 5 MG/325 MG] 1 - 2 tab PO Q6H PRN #40 tab 06/21/18 [Last Taken Unknown] alprazolam 2 mg tablet 2 mg PO QID PRN #120 tab 07/20/18 [Last Taken Unknown] aripiprazole 30 mg tablet 30 mg PO DAILY #30 tab 07/20/18 [Last Taken Unknown] escitalopram 10 mg tablet 10 mg PO DAILY #30 tab 01/31/19 [Last Taken Unknown] escitalopram 20 mg tablet 20 mg PO DAILY #30 tab 07/20/18 [Last Taken Unknown] hydrocodone 7.5 mg-acetaminophen 325 mg tablet 1 tab PO QID PRN #120 tab 07/26/18 [Last Taken Unknown] dextroamphetamine-amphetamine 20 mg tablet 20 mg PO BID #60 tab 08/10/18 [Last Taken Unknown] - History of Present Illness Narrative: Patient was walking around the apartment complex without a coat in 10F weather, confused, on arrival of EMs patient was sitting in chair, unable to keep eyes open, has a history of taking multiple meds, no history of injury or observed fall, no further history available Review of Systems - Narrative Narrative: unable to obtain Medical History (Last Reviewed 08/21/18 @ 10:36 by Marly Milton MD) Generalized anxiety disorder (Chronic) Attention deficit hyperactivity disorder (Chronic) Borderline personality disorder (Chronic) Bipolar affective disorder, current episode depressed (Chronic) Opioid dependence (Chronic) Failed back surgical syndrome (Chronic) Chronic pain syndrome (Chronic) Bursitis of left knee (Acute) Dyslipidemia (Chronic) Essential hypertension (Chronic) Deviated nasal septum Onset Date: Unknown Hypothyroidism Onset Date: ~1996 Influenza vaccination declined Onset Date: ~05/02/18 Malignant lymphoma Onset Date: ~1992 Surgery in [place], [place]. Radiation Therapy in [place], [place] Malignant neoplasm of thyroid gland Onset Date: ~1992 Surgery in [place], [place], Radiation Therapy in [place], [place] COPD (chronic obstructive pulmonary disease) Onset Date: Unknown Chronic viral hepatitis B Onset Date: ~06/02/07 Diabetes mellitus Onset Date: ~2010 Hidradenitis suppurativa Onset Date: ~06/02/07 Hyperlipidemia due to dietary fat intake Onset Date: ~06/02/07 Major depression Onset Date: Unknown Surgical History: Surgical History (Last Reviewed 08/21/18 @ 10:36 by Marly Milton MD) History of endometrial biopsy Onset Date: ~07/17/10 History of facial surgery Onset Date: ~1983 Numerous facial surgeries due to dog bite-initial surgery 1983 History of salpingectomy Onset Date: ~08/05/10 Left History of thyroid surgery Onset Date: ~1992 Thyroid & Lymph Node Cancer- Treated in [place], [place] History of total vaginal hysterectomy (TVH) Onset Date: ~02/16/11 Menometrorrhagia, Dysmenorrhea Hx of appendectomy Onset Date: ~2000 Hx of colonoscopy Onset Date: ~11/22/03 Hx of cystoscopy Onset Date: ~08/05/10 Hx of laminectomy Onset Date: ~09/27/12 Rt L5 hemilaminectomy, L5-S1 partial facetectomy, L5-S1 microdisectomy Hx of tubal ligation Onset Date: ~1996 Hyperhidrosis Onset Date: ~1999 Surgery under arms to remove sweat glands due to chronic boils Family History: Family History (Last Reviewed 08/21/18 @ 09:06 by Izabel Mcginnis RN) Father , @ age 60 Myocardial infarction Massive Hyperlipemia Grandmother , (2) Maternal from DM, Paternal from esophageal cancer No problems noted. Mother , @ age 70 Hyperlipidemia due to dietary fat intake Social History: Preferred Language [place] Smoking Status Current some day smoker Abuse History No History of abuse Psych History Hx of Anxiety,Hx of Depression,Hx of Bipolar Disorder,Currently on Meds (Last Updated 07/20/18 @ 14:44 by ABBEY Bourgeois) No Social History Section defined Physical Exam - Physical Exam General Appearance: Present: wd/wn, no apparent distress, lethargic Head Exam: Present: normal inspection, no evidence of injury Eye Exam: Normal inspection: bilateral, PERRL: bilateral - small, pinpoint Ears, Nose, Throat: Present: normal ENT inspection, normal pharynx Neck: Present: normal inspection Respiratory: Present: no respiratory distress, normal breath sounds, no accessory muscle use, lungs clear Cardiovascular/Chest: Present: regular rate, rhythm, no murmur Gastrointestinal/Abdominal: Present: normal bowel sounds, nondistended, soft Extremity Exam: Present: normal inspection, other - no signs of injury Neurological Exam: Present: other - lethargic Skin Exam: Present: normal color, warm/dry [place] Coma Scale - Assess Eye Opening: To Voice Motor: Localizes to Pain Verbal: None - Total Coma Scale Total: 9 Progress - Results and Orders Patient's Lab Results:: I have reviewed the patient's lab results. - Vital Signs Patient's Vital Signs:: I have reviewed the patient's vital signs. Vital Signs: Vital Signs 08/21/18 08:57 Temperature 35.2 C L Pulse Rate 81 Respiratory Rate 19 Blood Pressure 126/49 - EKG EKG #1 EKG: NSR, no ST T wave changes EKG read: Interp. by me - CT/Ultrasound CT/Ultrasound Narrative: CT head: 1. No acute intracranial hemorrhage or mass effect. - Progress/Reassessment Chief Complaint: Altered Mental Status Progress Note-Subjective: 08/21/18 09:06 after narcan 05mg patient starts moaning briefly but is not more alert 08/21/18 09:10 no significant response with second dose of narcan 08/21/18 10:35 patient opens eyes when talked to, mumbles 08/21/18 11:04 discussed with mckenzie Li to admit for observation for overdose/drug use. At this point it is unclear what the intentions were benzos and amphetamines are part of her scheduled medications in the chart Departure Clinical Impression: Overdose Qualifiers: Encounter type: initial encounter Injury intent: undetermined intent Qualified Code(s): T50.904A - Poisoning by unspecified drugs, medicaments and biological substances, undetermined, initial encounter - Departure Disposition: Still a patient Condition: Stable
[2018-08-21 09:18] LABS: Hematocrit 39.3 % (37.0-47.0); Hemoglobin 12.7 gm/dL (12.5-16.0); Mean Cell Volume 93.6 fl (78-100); Mean Corpuscular Hemoglobin 30.2 pg (27-31); Mean Corpuscular Hgb Conc 32.3 g/dl (32-36); Mean Platelet Volume 9.5 fl (8-12.5); Neutrophil # 2.8 K/mm3 (1.3-6.0); Neutrophil % 52.8 % (42-75.0); Platelet Count 226 K/mm3 (150-450); Red Cell Distribution Width 14.9 % (11.5-14.0); White Blood Count 5.3 K/mm3 (4.0-10.5)
[2018-08-21 09:25] LABS: Urine Bilirubin Negative (NEGATIVE); Urine Blood Negative /ul (NEGATIVE); Urine Ketone Negative (NEGATIVE); Urine Nitrite Negative (NEGATIVE); Urine Protein Negative (NEGATIVE); Urine Specific Gravity 1.015 SP.GR. (1.005-1.010); Urine Urobilinogen Normal (NORMAL)
[2018-08-21 09:27] LABS: Urine Appearance Clear (CLEAR); Urine Bacteria TRACE; Urine Color Yellow; Urine WBC 0-5 /hpf (0-5)
[2018-08-21 09:38] LABS: Cocaine Ur Positive (NEGATIVE); Urine Barbiturate Negative (NEGATIVE); Urine Benzodiazepines Positive (NEGATIVE); Urine Opiates Negative (NEGATIVE); Urine PCP Negative (NEGATIVE); Urine THC Negative (NEGATIVE)
[2018-08-21 09:44] LABS: ALT 9 U/L (19-67); AST 13 U/L (0-48); Albumin * 3.7 gm/dl (3.4-5.0); Alkaline Phosphatase * 136 U/L (50-170); Anion Gap 12.5 mmol/L (6.8-13.8); Bilirubin, Total 0.3 mg/dL (0.0-1.1); Blood Urea Nitrogen 19 mg/dL (3-23); Ca. Corrected For Albumin 8.6 mg/dL (8.4-10.2); Calcium * 8.7 mg/dL (7.9-10.9); Carbon Dioxide 26.9 mmol/L (24-32.6); Chloride 102 mmol/L (97-106); Glucose * 105 mg/dL (70-110); Potassium 3.4 mmol/L (3.4-4.6); Sodium 138 mmol/L (132-142); Total Protein 7.4 gm/dL (6.2-8.2); Troponin I Less than 0.017 ng/mL (0.00-0.10)
[2018-08-21] MEDS ORDERED: NORMAL SALINE 1,000 ML IV ONE (10:34)
[2018-08-21 10:50] LABS: Acetaminophen * 2.9 mcg/mL (10.0-30.0); Salicylate 5.1 mg/dL (2.8-20.0)
[2018-08-21 17:38] VITALS: BP 129/80
--- NOTE | 2018-08-21 18:59 | HP ---
Chief Complaint - Chief Complaint Date of Service: 08/21/18 Time of Service: 18:36 Chief Complaint: Polysubstance overdose History of Present Illness: Vanessa Herr is a 53 yo. wh. fe. who presented to the ER in a stuporous state ([id number]) due to polysubstance overdose including coccaine, etoh, benzodiazepines, and amphetamines. The vicodin that is prescribed for her is not in the UDS. She also admits to taking too many Seroquel because she wanted to sleep. This evening, she is fully alert and conversant. She is still slurring her words, however. She insists on leaving AMA but elected to just discharge her instead. I will also discharge her as a patient tomorrow. Medical History (Last Reviewed 08/21/18 @ 10:36 by Marly Milton MD) Generalized anxiety disorder (Chronic) Attention deficit hyperactivity disorder (Chronic) Borderline personality disorder (Chronic) Bipolar affective disorder, current episode depressed (Chronic) Opioid dependence (Chronic) Failed back surgical syndrome (Chronic) Chronic pain syndrome (Chronic) Bursitis of left knee (Acute) Dyslipidemia (Chronic) Essential hypertension (Chronic) Deviated nasal septum Onset Date: Unknown Hypothyroidism Onset Date: ~1996 Influenza vaccination declined Onset Date: ~05/02/18 Malignant lymphoma Onset Date: ~1992 Surgery in [place], [place]. Radiation Therapy in [place], [place] Malignant neoplasm of thyroid gland Onset Date: ~1992 Surgery in [place], [place], Radiation Therapy in [place], [place] COPD (chronic obstructive pulmonary disease) Onset Date: Unknown Chronic viral hepatitis B Onset Date: ~06/02/07 Diabetes mellitus Onset Date: ~2010 Hidradenitis suppurativa Onset Date: ~06/02/07 Hyperlipidemia due to dietary fat intake Onset Date: ~06/02/07 Major depression Onset Date: Unknown Surgical History: Surgical History (Last Reviewed 08/21/18 @ 10:36 by Marly Milton MD) History of endometrial biopsy Onset Date: ~07/17/10 History of facial surgery Onset Date: ~1983 Numerous facial surgeries due to dog bite-initial surgery 1983 History of salpingectomy Onset Date: ~08/05/10 Left History of thyroid surgery Onset Date: ~1992 Thyroid & Lymph Node Cancer- Treated in [place], [place] History of total vaginal hysterectomy (TVH) Onset Date: ~08/05/10 Menometrorrhagia, Dysmenorrhea Hx of appendectomy Onset Date: ~2000 Hx of colonoscopy Onset Date: ~11/22/03 Hx of cystoscopy Onset Date: ~08/05/10 Hx of laminectomy Onset Date: ~09/27/12 Rt L5 hemilaminectomy, L5-S1 partial facetectomy, L5-S1 microdisectomy Hx of tubal ligation Onset Date: ~1996 Hyperhidrosis Onset Date: ~1999 Surgery under arms to remove sweat glands due to chronic boils Family History: Family History (Last Reviewed 08/21/18 @ 09:06 by Izabel Mcginnis RN) Father , @ age 60 Myocardial infarction Massive Hyperlipemia Grandmother , (2) Maternal from DM, Paternal from esophageal cancer No problems noted. Mother , @ age 70 Hyperlipidemia due to dietary fat intake Social History: Patient Lives/Resources Home Utilized Preferred Language Uzbek Smoking Status Unknown if ever smoked Have you smoked in the past 12 No months Abuse History No History of abuse Psych History Hx of Anxiety,Hx of Depression,Hx of Bipolar Disorder,Currently on Meds (Last Updated 07/20/18 @ 14:44 by ABBEY Bourgeois) No Social History Section defined Review Of Systems (GEN) - Review of Systems EENTM: Present: No Symptoms Reported Respiratory: Present: No Symptoms Reported Cardiac: Present: No Symptoms Reported Abdominal: Present: No Symptoms Reported Genitourinary: Present: No Symptoms Reported Musculoskeletal: Present: Joint Pain, Back Pain, Muscle Pain, Neck Pain Neurological: Present: No Symptoms Reported, Emotional Problems Skin: Present: No Symptoms Reported Endocrine: Present: No Symptoms Reported Immunizations: IMMUNIZATION HX Immunizations Up to Date Yes History of Influenza Vaccine No Hx Pneumococcal Vaccination Yes Allergies/Adverse Reactions: Allergies Allergy/AdvReac Type Severity Reaction Status Date / Time gabapentin [From Neurontin] Allergy Mild Makes Verified 07/20/18 14:32 patient feel "high" sumatriptan [From Imitrex] AdvReac Mild "made me Verified 07/20/18 14:32 feel high" sumatriptan succinate AdvReac Mild "made me Verified 07/20/18 14:32 [From Imitrex] feel high" Home Medications: HOME MEDICATIONS albuterol sulfate HFA 90 mcg/actuation aerosol inhaler 1 puff IH QID PRN g 01/12/18 [Last Taken Unknown] amlodipine 5 mg tablet 5 mg PO BID tab 01/12/18 [Last Taken Unknown] lisinopril 30 mg tablet 30 mg PO DAILY 01/12/18 [Last Taken Unknown] omeprazole 20 mg capsule,delayed release 20 mg PO DAILY 01/12/18 [Last Taken Unknown] rosuvastatin 20 mg tablet 20 mg PO DAILY 01/12/18 [Last Taken Unknown] metoprolol tartrate 50 mg tablet 50 mg PO BID #60 tab 03/24/18 [Last Taken Unknown] levothyroxine 200 mcg tablet 200 mcg PO DAILY #30 tab 03/27/18 [Last Taken Unknown] cyclobenzaprine 10 mg tablet 10 mg PO HS #30 tab 03/31/18 [Last Taken Unknown] quetiapine 300 mg tablet 300 mg PO HS #30 tab 05/26/18 [Last Taken Unknown] Silver Sulfadiazine [Silvadene] 1 appl TOPICAL BID #85 gm 06/21/18 [Last Taken Unknown] oxyCODONE HCL/ACETAMINOPHEN [Percocet 5 MG/325 MG] 1 - 2 tab PO Q6H PRN #40 tab 06/21/18 [Last Taken Unknown] alprazolam 2 mg tablet 2 mg PO QID PRN #120 tab 07/20/18 [Last Taken Unknown] aripiprazole 30 mg tablet 30 mg PO DAILY #30 tab 07/20/18 [Last Taken Unknown] escitalopram 10 mg tablet 10 mg PO DAILY #30 tab 07/20/18 [Last Taken Unknown] escitalopram 20 mg tablet 20 mg PO DAILY #30 tab 07/20/18 [Last Taken Unknown] hydrocodone 7.5 mg-acetaminophen 325 mg tablet 1 tab PO QID PRN #120 tab 07/26/18 [Last Taken Unknown] dextroamphetamine-amphetamine 20 mg tablet 20 mg PO BID #60 tab 08/10/18 [Last Taken Unknown] Levothyroxine Sodium [Synthroid] 50 mcg PO DAILY 08/21/18 [Last Taken Unknown] Exam - Exam Vital Signs: Vital Signs - Last Taken Temp 35.8 C L 08/21/18 15:22 Pulse 92 08/21/18 17:37 Resp 16 08/21/18 17:37 BP 129/80 08/21/18 17:37 Pulse Ox 97 08/21/18 17:37 Constitutional: Present: Alert, Oriented x3, Cooperative, Well developed, Well nourished, No distress ENT Exam: Present: normal ENT inspection, hearing grossly normal, pharynx normal, TMs normal Eye Exam: bilateral eye: normal inspection, PERRL, EOMI Neck: Present: non-tender, full range of motion, supple, normal inspection Respiratory: Present: chest non-tender, lungs clear Cardiovascular/Chest: Present: normal peripheral pulses, regular rate, rhythm Abdomen: Present: Normal bowel sounds /Rectal: Present: Exam deferred Extremity: Present: normal range of motion, non-tender, normal inspection Skin Exam: Present: normal color, warm/dry, no cyanosis Lymphatic: Present: no adenopathy Neurologic: Present: cryogenics repairer II-XII nml as tested Appearance: Present: disheveled, impaired insight Eye contact: Present: increased rate of speech - And slurred. Thoughts: Absent: normal thought pattern, normal mood /affect Diagnostic Studies: Abnormal Lab Results 08/21/18 08/21/18 08/21/18 Range/Units 09:10 09:10 09:10 RDW 14.9 H (11.5-14.0) % Est GFR (Non-Af Amer) 51 L D (60-130) mL/min ALT 9 L (19-67) U/L Urine RBC (0-5) /hpf Acetaminophen 2.9 L (10.0-30.0) mcg/mL Urine Amphetamine (NEGATIVE) U Benzodiazepines Scrn (NEGATIVE) Urine Cocaine Screen (NEGATIVE) 08/21/18 08/21/18 Range/Units 09:20 09:20 RDW (11.5-14.0) % Est GFR (Non-Af Amer) (60-130) mL/min ALT (19-67) U/L Urine RBC 5-10 H (0-5) /hpf Acetaminophen (10.0-30.0) mcg/mL Urine Amphetamine Positive H (NEGATIVE) U Benzodiazepines Scrn Positive H (NEGATIVE) Urine Cocaine Screen Positive H (NEGATIVE) Laboratory Results WBC 5.3 K/mm3 (4.0-10.5) 08/21/18 09:10 RBC 4.20 M/mm3 (4.2-5.4) 08/21/18 09:10 Hgb 12.7 gm/dL (12.5-16.0) 08/21/18 09:10 Hct 39.3 % (37.0-47.0) 08/21/18 09:10 MCV 93.6 fl (78-100) 08/21/18 09:10 MCH 30.2 pg (27-31) 08/21/18 09:10 MCHC 32.3 g/dl (32-36) 08/21/18 09:10 RDW 14.9 % (11.5-14.0) H 08/21/18 09:10 Plt Count 226 K/mm3 (150-450) 08/21/18 09:10 MPV 9.5 fl (8-12.5) 08/21/18 09:10 Immature Gran % (Auto) 0.20 % (0.001-0.429) 08/21/18 09:10 Immature Gran # (Auto) 0.01 K/mm3 (0.000-0.0310) 08/21/18 09:10 Neutrophils % 52.8 % (42-75.0) 08/21/18 09:10 Lymphocytes % 36.0 % (20-51) 08/21/18 09:10 Monocytes % 7.7 % (0.0-9) 08/21/18 09:10 Eosinophils % 2.4 % (0.0-3.0) 08/21/18 09:10 Basophils % 0.9 % (0.0-1.0) 08/21/18 09:10 Nucleated RBC % 0.0 k/mm3 (0-1) 08/21/18 09:10 Neutrophils # 2.8 K/mm3 (1.3-6.0) 08/21/18 09:10 Lymphocytes # 1.92 k/mm3 (1.5-3.5) 08/21/18 09:10 Monocytes # 0.4 k/mm3 (0.0-1.0) 08/21/18 09:10 Eosinophils # 0.1 k/mm3 (0.0-0.7) 08/21/18 09:10 Absolute Basophils 0.1 k/mm3 (0.0-0.1) 08/21/18 09:10 Sodium 138 mmol/L (132-142) 08/21/18 09:10 Plasma Sodium 138 mmol/L (130-142) 08/21/18 09:10 Potassium 3.4 mmol/L (3.4-4.6) 08/21/18 09:10 Chloride 102 mmol/L (97-106) 08/21/18 09:10 Carbon Dioxide 26.9 mmol/L (24-32.6) 08/21/18 09:10 Anion Gap 12.5 mmol/L (6.8-13.8) 08/21/18 09:10 BUN 19 mg/dL (3-23) D 08/21/18 09:10 Creatinine 1.19 mg/dL (0.4-1.4) 08/21/18 09:10 Est GFR (Non-Af Amer) 51 mL/min (60-130) L D 08/21/18 09:10 BUN/Creatinine Ratio 16.0 (9.0-21.6) 08/21/18 09:10 Random Glucose 105 mg/dL (70-110) 08/21/18 09:10 Calcium 8.7 mg/dL (7.9-10.9) 08/21/18 09:10 Calcium Adj for Albumin 8.6 mg/dL (8.4-10.2) 08/21/18 09:10 Total Bilirubin 0.3 mg/dL (0.0-1.1) 08/21/18 09:10 AST 13 U/L (0-48) 08/21/18 09:10 ALT 9 U/L (19-67) L 08/21/18 09:10 Alkaline Phosphatase 136 U/L (50-170) 08/21/18 09:10 Troponin I Less than 0.017 ng/mL (0.00-0.10) 08/21/18 09:10 Total Protein 7.4 gm/dL (6.2-8.2) 08/21/18 09:10 Albumin 3.7 gm/dl (3.4-5.0) 08/21/18 09:10 Urine Color Yellow 08/21/18 09:20 Urine Appearance Clear (CLEAR) 08/21/18 09:20 Urine pH 6.0 pH (5.0-7.0) 08/21/18 09:20 Ur Specific [place] 1.015 SP.GR. (1.005-1.010) 08/21/18 09:20 Urine Protein Negative mg/dL (NEGATIVE) 08/21/18 09:20 Urine Glucose (UA) Negative mg/dL (NEGATIVE) 08/21/18 09:20 Urine Ketones Negative mg/dL (NEGATIVE) 08/21/18 09:20 Urine Blood Negative /ul (NEGATIVE) 08/21/18 09:20 Urine Nitrate Negative (NEGATIVE) 08/21/18 09:20 Urine Bilirubin Negative mg/dl (NEGATIVE) 08/21/18 09:20 Urine Urobilinogen Normal EU/dl (NORMAL) 08/21/18 09:20 Ur Leukocyte Esterase Negative /ul (NEGATIVE) 08/21/18 09:20 Urine RBC 5-10 /hpf (0-5) H 08/21/18 09:20 Urine WBC 0-5 /hpf (0-5) 08/21/18 09:20 Ur Epithelial Cells None seen /hpf (0-5) 08/21/18 09:20 Urine Bacteria Trace (NONE) 08/21/18 09:20 Urine Culture Comments Culture to follow 08/21/18 09:20 Salicylates 5.1 mg/dL (2.8-20.0) 08/21/18 09:10 Urine Opiates Screen Negative (NEGATIVE) 08/21/18 09:20 Acetaminophen 2.9 mcg/mL (10.0-30.0) L 08/21/18 09:10 Barbiturate Screen Negative (NEGATIVE) 08/21/18 09:20 Ur Phencyclidine Scrn Negative (NEGATIVE) 08/21/18 09:20 Urine Amphetamine Positive (NEGATIVE) H 08/21/18 09:20 U Benzodiazepines Scrn Positive (NEGATIVE) H 08/21/18 09:20 Urine Cocaine Screen Positive (NEGATIVE) H 08/21/18 09:20 Urine Marijuana (THC) Negative (NEGATIVE) 08/21/18 09:20 Ethyl Alcohol Less than 3.0 mg/dL (0.0-10.0) 08/21/18 09:10 Assessment/Plan - Narrative Narrative: Ede Herr was admitted through the emergency room. She was given Narcan but not Romazicon. She was still very sleepy and stuporous when she came to the medical floor. She is gradually sobered through the day and this evening is fully alert and responsive and is becoming less cooperative through the afternoon and evening. She insists on leaving. I came to see her just before she was leaving. Her speech is still somewhat slurred but also pressured. I informed her that I would not be providing her her controlled substances in the future and she became angry with that and left. Her vital signs have been stable I don't know how much medication that she still has at home. She does state that she is not a danger to herself and wouldn't do this again. She states that she had not taken her Vicodin in 3 days which is why it didn't show up in her urine drug screen as an opiate. She also admits to having been drinking Bacardi rum today. I've told her that the combination of things she was doing is a lethal combination and she is fortunate to be alive. I do not believe she is a danger to herself now or to others. She is therefore discharged to home. - Assessment/Plan (1) Overdose Problem: Acute Qualifiers: Encounter type: initial encounter Injury intent: undetermined intent Qualified Code(s): T50.904A - Poisoning by unspecified drugs, medicaments and biological substances, undetermined, initial encounter (2) Opioid dependence Problem: Chronic Qualifiers: Substance use status: with intoxication Complication of substance-induced condition: with delirium Qualified Code(s): F11.221 - Opioid dependence with intoxication delirium (3) Intoxication Problem: Acute
[2018-08-21] MEDS ORDERED: ALBUTEROL SULFATE 200 PUFF INHALER IH PRN (19:01)
--- NOTE | 2018-08-21 19:19 | DS ---
(1) Overdose Problem: Acute Qualifiers: Encounter type: initial encounter Injury intent: undetermined intent Qualified Code(s): T50.904A - Poisoning by unspecified drugs, medicaments and biological substances, undetermined, initial encounter (2) Opioid dependence Problem: Chronic Qualifiers: Substance use status: with intoxication Complication of substance-induced condition: with delirium Qualified Code(s): F11.221 - Opioid dependence with intoxication delirium (3) Intoxication Problem: Acute Description of Stay: Blake Herr is a 53-year-old female who came to the medical floor after being evaluated and stabilized in the emergency room for polysubstance drug over dose. She had taken a combination of cocaine, alcohol, Seroquel, dextroamphetamine/amphetamine. She states she hasn't taken her Vicodin in 3 days which is why didn't show up in her urine. I asked her if she was diverting her selling her hydrocodone and she denied that of course. She has sobered through the course of the day and this evening is ambulatory and conversant. She is agitated and anxious and angry because I informed her I would no longer be providing her controlled substances. She was going to leave AGAINST MEDICAL ADVICE but I elected to just discharge her to home. I did ask her if she was a danger to herself and she said she was not and that this wouldn't happen again. I don't know how much of her medicine she still has. Procedures Performed: none Results and Findings: Lab Pending Results 08/21/18 09:10: WBC 5.3, RBC 4.20, Hgb 12.7, Hct 39.3, MCV 93.6, MCH 30.2, MCHC 32.3, RDW 14.9 H, Plt Count 226, MPV 9.5, Immature Gran % (Auto) 0.20, Immature Gran # (Auto) 0.01, Neutrophils % 52.8, Lymphocytes % 36.0, Monocytes % 7.7, Eosinophils % 2.4, Basophils % 0.9, Nucleated RBC % 0.0, Neutrophils # 2.8, Lymphocytes # 1.92, Monocytes # 0.4, Eosinophils # 0.1, Absolute Basophils 0.1 08/21/18 09:10: Sodium 138, Plasma Sodium 138, Potassium 3.4, Chloride 102, Carbon Dioxide 26.9, Anion Gap 12.5, BUN 19 D, Creatinine 1.19, Est GFR (Non-Af Amer) 51 L D, BUN/Creatinine Ratio 16.0, Random Glucose 105, Calcium 8.7, Calcium Adj for Albumin 8.6, Total Bilirubin 0.3, AST 13, ALT 9 L, Alkaline Phosphatase 136, Troponin I Less than 0.017, Total Protein 7.4, Albumin 3.7 08/21/18 09:10: Salicylates 5.1, Acetaminophen 2.9 L 08/21/18 09:10: Ethyl Alcohol Less than 3.0 08/21/18 09:20: Urine Color Yellow, Urine Appearance Clear, Urine pH 6.0, Ur Specific [place] 1.015, Urine Protein Negative, Urine Glucose (UA) Negative, Urine Ketones Negative, Urine Blood Negative, Urine Nitrate Negative, Urine Bilirubin Negative, Urine Urobilinogen Normal, Ur Leukocyte Esterase Negative, Urine RBC 5-10 H, Urine WBC 0-5, Ur Epithelial Cells None seen, Urine Bacteria Trace, Urine Culture Comments Culture to follow 08/21/18 09:20: Urine Opiates Screen Negative, Barbiturate Screen Negative, Ur Phencyclidine Scrn Negative, Urine Amphetamine Positive H, U Benzodiazepines Scrn Positive H, Urine Cocaine Screen Positive H, Urine Marijuana (THC) Negative Discharge Location: Home Disposition: Home self-care Condition: Stable Discharge Activity: Activity as tolerated Discharge Diet: Consistent carbs Referrals: Crescencio Rouse DO [Primary Care Provider] - Additional Patient Instructions (free text): 1. Avoid alcohol and illicit drugs. 2. Please find a chronic pain management physician to take care of her controlled substances as I will no longer be providing them. make TCM appo intment unless jail discharge. Thank you! Estelita @ ext:[phone]. Complete Home Medications List: Complete Home Medication List: albuterol sulfate HFA 90 mcg/actuation aerosol inhaler 1 puff IH QID PRN g 01/12/18 amlodipine 5 mg tablet 5 mg PO BID tab 01/12/18 lisinopril 30 mg tablet 30 mg PO DAILY 01/12/18 omeprazole 20 mg capsule,delayed release 20 mg PO DAILY 01/12/18 rosuvastatin 20 mg tablet 20 mg PO DAILY 01/12/18 metoprolol tartrate 50 mg tablet 50 mg PO BID #60 tab 03/24/18 levothyroxine 200 mcg tablet 200 mcg PO DAILY #30 tab 03/27/18 cyclobenzaprine 10 mg tablet 10 mg PO HS #30 tab 03/31/18 quetiapine 300 mg tablet 300 mg PO HS #30 tab 05/26/18 Silver Sulfadiazine [Silvadene] 1 appl TOPICAL BID #85 gm 06/21/18 aripiprazole 30 mg tablet 30 mg PO DAILY #30 tab 07/20/18 escitalopram 10 mg tablet 10 mg PO DAILY #30 tab 07/20/18 Levothyroxine Sodium [Synthroid] 50 mcg PO DAILY 08/21/18
[2018-08-21] MEDS ORDERED: amLODIPine BESYLATE 5 MG TABLET PO SCH (21:00)
[2018-08-21] MEDS ORDERED: CYCLOBENZAPRINE HCL 10 MG TABLET PO SCH (21:00)
[2018-08-21] MEDS ORDERED: METOPROLOL TARTRATE 50 MG TABLET PO SCH (21:00)
[2018-08-22] MEDS ORDERED: ARIPIPRAZOLE 30 MG PO SCH (09:00)
[2018-08-22] MEDS ORDERED: LISINOPRIL 30 MG PO SCH (09:00)
[2018-08-22] MEDS ORDERED: ESCITALOPRAM OXALATE 10 MG TAB PO SCH (09:00)
[2018-08-22] MEDS ORDERED: NON-FORMULARY 1 DOSE DOSE (Omeprazole 20 MG) PO SCH (09:00)
== END 2018-08-21 18:35 | disposition home or self-care (01) ==
LOC: ER 08:56 → MS 08:56
PROVIDERS: ADMIT Family Medicine; ATTEND Family Medicine
CPT/HCPCS: 36415; 70450; 80053; 80307; 80320; 80329; 81001; 84484; 85025; 87077; 87086; 87186; 93005; 96361; 96374; 96375; 99285; G0480; G0481